=== PATIENT | male | born 1930 | race Caucasian/White ===

== ENCOUNTER 2017-02-25 11:07 | Emergency (ER) | payer OTHER, BC ==
[~2017-02-25] VITALS: Ht 177.8 cm; Wt 74.8 kg
[2017-02-25 11:07] VITALS: BP 115/52
[2017-02-25] MEDS ORDERED: DETROL LA2 MG PO (11:29)
[2017-02-25] MEDS ORDERED: IMDUR 30 MG TAB30 M1 PO (11:29)
[2017-02-25] MEDS ORDERED: LOPRESSOR25 PO (11:30)
[2017-02-25] MEDS ORDERED: ASPIRIN325 PO (11:30)
[2017-02-25] MEDS ORDERED: ATORVASTATIN CA40 MG PO (11:30)
[2017-02-25] MEDS ORDERED: HYDROCHLOROTHIA25 M2 PO (11:30)
[2017-02-25] MEDS ORDERED: LISINOPRIL5 MG PO (11:30)
[2017-02-25] MEDS ORDERED: ALLOPURINOL 10100 M1 PO (11:30)
[2017-02-25] MEDS ORDERED: OSTEO BI-FLEX1 EAC1 PO (11:31)
[2017-02-25] MEDS ORDERED: UNICOMPLEX M TA1 TA1 PO (11:31)
[2017-02-25] MEDS ORDERED: KEFLEX500 MG PO (13:00)
[2017-02-25] MEDS ORDERED: HYDROCODONE-AP1 EAC6 PO (13:00)
== END 2017-02-25 13:23 | disposition home or self-care (01) ==
LOC: ER 11:07
DX: S51.812A Laceration without foreign body of left forearm, initial encounter (principal); F10.99 Alcohol use, unspecified with unspecified alcohol-induced disorder; I10 Essential (primary) hypertension; W01.0XXA Fall on same level from slipping, tripping and stumbling without subsequent striking against object, initial encounter; Y93.89 Activity, other specified; Y92.096 Garden or yard of other non-institutional residence as the place of occurrence of the external cause; Y99.8 Other external cause status

== ENCOUNTER → 2019-04-02 | Outpatient (CLI) | payer OTHER, BC ==
[~2019-04-02] MED LIST: ALLOPURINOL 10100 M1 PO; ASPIRIN325 PO; ATORVASTATIN CA40 MG PO; DETROL LA2 MG PO; HYDROCHLOROTHIA25 M2 PO; HYDROCODONE-AP1 EAC6 PO; IMDUR 30 MG TAB30 M1 PO; KEFLEX500 MG PO; LISINOPRIL5 MG PO; LOPRESSOR25 PO; OSTEO BI-FLEX1 EAC1 PO; UNICOMPLEX M TA1 TA1 PO
== END ==
LOC: HYPER 15:54
DX: I87.333 Chronic venous hypertension (idiopathic) with ulcer and inflammation of bilateral lower extremity (principal); L97.811 Non-pressure chronic ulcer of other part of right lower leg limited to breakdown of skin; L97.821 Non-pressure chronic ulcer of other part of left lower leg limited to breakdown of skin; R60.0 Localized edema; C67.9 Malignant neoplasm of bladder, unspecified; L30.9 Dermatitis, unspecified; E78.5 Hyperlipidemia, unspecified; G47.00 Insomnia, unspecified; I13.0 Hypertensive heart and chronic kidney disease with heart failure and stage 1 through stage 4 chronic kidney disease, or unspecified chronic kidney disease; I50.42 Chronic combined systolic (congestive) and diastolic (congestive) heart failure; N18.3 Chronic kidney disease, stage 3 (moderate); I48.20 Chronic atrial fibrillation, unspecified; I25.10 Atherosclerotic heart disease of native coronary artery without angina pectoris; M19.90 Unspecified osteoarthritis, unspecified site; Z79.82 Long term (current) use of aspirin; Z87.891 Personal history of nicotine dependence; Z86.718 Personal history of other venous thrombosis and embolism; Z95.4 Presence of other heart-valve replacement